=== PATIENT | male | born 1965 | race Two or more races ===

== ENCOUNTER → 2023-10-26 | Emergency (ER) | payer BC, MEDICAID ==
[2023-10-26 01:34] LABS: COVID19 ANTIGEN SOFIA FIA NEGATIVE (NEGATIVE); Rapid Influenza A Negative (Negative); Rapid Influenza B Negative (Negative)
== END | disposition left against medical advice (07) ==
LOC: ER 00:37
DX: R06.02 Shortness of breath (principal); Z20.822 Contact with and (suspected) exposure to COVID-19; Z53.21 Procedure and treatment not carried out due to patient leaving prior to being seen by health care provider
CPT/HCPCS: 36415; 87426; 87804